=== PATIENT | male | born 1985 | race Caucasian/White ===

== ENCOUNTER 2021-02-02 21:02 | Emergency (ER) | payer OTHER ==
[~2021-02-02] VITALS: Ht 190.5 cm; Wt 158.8 kg
[2021-02-02 21:05] VITALS: BP 141/104
--- NOTE | 2021-02-02 21:06 | NUR ---
PT [facility] ALBERTO BLS. TAKEN TO BED 8
--- NOTE | 2021-02-02 21:10 | NUR ---
BIBA WITH C/O FOOT AND ANKLE SWELLING X 1 MONTH. C/O PAIN TO FEET AND C/O "SCRATCHY THROAT" IS AWAKE AND ALERT. BILATERAL PEDAL EDEMA. PT IS TRANSIENT, VERY PLEASANT AND COOPERATIVE.
--- NOTE | 2021-02-02 22:06 | NUR ---
Dr. Martinez examining patient.
[2021-02-02] MEDS ORDERED: BACITRACIN OINT 500 UNITS/GM PKT TP ONE (22:10)
--- NOTE | 2021-02-02 22:55 | NUR ---
Dr. Talavera examining patient.
[2021-02-02] MEDS ORDERED: CEPH500C16 PO (23:10)
[2021-02-02 23:53] VITALS: BP 142/86
== END 2021-02-02 23:54 | disposition home or self-care (01) ==
LOC: MED 21:02
DX: T69.021A Immersion foot, right foot, initial encounter (principal); T69.022A Immersion foot, left foot, initial encounter; Z79.899 Other long term (current) drug therapy
CPT/HCPCS: 99283